=== PATIENT | male | born 1990 | race Caucasian/White ===

== ENCOUNTER 2021-06-26 15:54 | Inpatient (IN) | payer OTHER ==
[~2021-06-26] VITALS: Ht 175.3 cm; Wt 150.0 kg
[2021-06-26] MEDS ORDERED: NEURONTIN300 MG (17:04)
== END 2021-08-25 12:16 | disposition home or self-care (01) | DRG 867 ==
LOC: ER 15:54 → MEDJ 06-27 11:30 → SEC-K 06-27 11:30 → MEDJ 06-27 22:05
PROVIDERS: ADMIT Internal Medicine; ATTEND Internal Medicine
PROC: 30233N1 Transfusion of Nonautologous Red Blood Cells into Peripheral Vein, Percutaneous Approach (ICD-10-PCS; principal; 2021-06-27)
PROC: BW25ZZZ Computerized Tomography (CT Scan) of Chest, Abdomen and Pelvis (ICD-10-PCS; 2021-06-27)
PROC: 8E0ZXY6 Isolation (ICD-10-PCS; 2021-06-27)
PROC: 3E0F7SF Introduction of Other Gas into Respiratory Tract, Via Natural or Artificial Opening (ICD-10-PCS; 2021-06-27)
PROC: 3E0F7GC Introduction of Other Therapeutic Substance into Respiratory Tract, Via Natural or Artificial Opening (ICD-10-PCS; 2021-06-27)
PROC: B24BZZZ Ultrasonography of Heart with Aorta (ICD-10-PCS; 2021-06-27)
PROC: 4A12X4Z Monitoring of Cardiac Electrical Activity, External Approach (ICD-10-PCS; 2021-06-28)
PROC: 05H533Z Insertion of Infusion Device into Right Subclavian Vein, Percutaneous Approach (ICD-10-PCS; 2021-07-05)
PROC: 4A033R1 Measurement of Arterial Saturation, Peripheral, Percutaneous Approach (ICD-10-PCS; 2021-07-09)
PROC: 02PY33Z Removal of Infusion Device from Great Vessel, Percutaneous Approach (ICD-10-PCS; 2021-07-16)
PROC: 02HV33Z Insertion of Infusion Device into Superior Vena Cava, Percutaneous Approach (ICD-10-PCS; 2021-07-16)
PROC: BW25ZZZ Computerized Tomography (CT Scan) of Chest, Abdomen and Pelvis (ICD-10-PCS; 2021-08-04)
PROC: 0W9B3ZX Drainage of Left Pleural Cavity, Percutaneous Approach, Diagnostic (ICD-10-PCS; 2021-08-12)
PROC: BW25ZZZ Computerized Tomography (CT Scan) of Chest, Abdomen and Pelvis (ICD-10-PCS; 2021-08-24)
DX: A49.02 Methicillin resistant Staphylococcus aureus infection, unspecified site (principal); J85.0 Gangrene and necrosis of lung; T80.211A Bloodstream infection due to central venous catheter, initial encounter; I33.0 Acute and subacute infective endocarditis; U07.1 COVID-19; I26.90 Septic pulmonary embolism without acute cor pulmonale; F19.239 Other psychoactive substance dependence with withdrawal, unspecified; J90 Pleural effusion, not elsewhere classified; J45.998 Other asthma; D64.9 Anemia, unspecified; G43.809 Other migraine, not intractable, without status migrainosus; Z20.822 Contact with and (suspected) exposure to COVID-19; B19.20 Unspecified viral hepatitis C without hepatic coma; F17.210 Nicotine dependence, cigarettes, uncomplicated; B34.9 Viral infection, unspecified; I80.8 Phlebitis and thrombophlebitis of other sites; I07.1 Rheumatic tricuspid insufficiency; E87.6 Hypokalemia; I50.810 Right heart failure, unspecified; D72.828 Other elevated white blood cell count; E87.5 Hyperkalemia; M25.512 Pain in left shoulder; M25.511 Pain in right shoulder; Y65.8 Other specified misadventures during surgical and medical care; Y92.231 Patient bathroom in hospital as the place of occurrence of the external cause; I11.0 Hypertensive heart disease with heart failure

== ENCOUNTER → 2021-08-29 | Emergency (ER) | payer OTHER ==
[~2021-08-29] VITALS: Ht 177.8 cm; Wt 72.6 kg
[~2021-08-29] MED LIST: NEURONTIN300 MG
== END | disposition home or self-care (01) ==
LOC: ER 15:30
DX: R07.89 Other chest pain (principal)